=== PATIENT | female | born 2000 | race Hispanic/Latino ===

== ENCOUNTER 2024-12-01 14:27 | Emergency (ER) | payer OTHER, SELFPAY ==
[2024-12-01 14:27] VITALS: BMI 23.1
[2024-12-01 14:28] VITALS: BP 130/74
--- NOTE | 2024-12-01 15:46 | ED.GENMED ---
History of Present Illness
General
Chief Complaint: Vaginal Bleeding
Source: patient
Exam Limitations: none
Time Seen by Provider: 12/01/24 14:48
Nursing documentation reviewed up to this point in time: agreed with
History of Present Illness
History of Present Illness:
Patient is a 24-year-old female who presents to the ER for evaluation. Patient reports she has a constant history of irregular heavy periods and she has been bleeding for the past 2 weeks. She does complain of some mild cramping. She recently
graduated from [facility] and was seen by [facility] 5 months and does have an appointment in January.
Patient does complain of feeling very fatigued.
In addition she had right sided rib pain for past 5 days. She denies any injury but does report pain is worse with taking a deep breath. She denies any abdominal pain. Denies any shortness of breath. She does not smoke. She is not on
control. She denies any injury but does report she exercises a lot.
Review of Systems
Review of Systems
Allergies reviewed?: Yes
All Other Systems: ROS reviewed and negative except as documented in HPI and ROS
Constitutional: Reports no symptoms
Respiratory: Reports other (right sided rib pain )
Cardiac: Reports no symptoms
ABD/GI: Reports no symptoms
: Reports other (+ heavy vaginal bleeding mild cramping)
Musculoskeletal: Reports no symptoms
Skin: Reports no symptoms
Neurological: Reports no symptoms
Psychiatric: Reports no symptoms
Phy Exam
General Physical Exam
General Presentation: no apparent distress
General age: appears stated age
General Skin: warm and dry
General Habitus: normal
General Mental: alert
General Hydration: appears well hydrated
Gastrointestinal Exam
Gastrointestinal Exam: normal bowel sounds, non tender and soft
Neurological Exam
Neurological Exam: alert and oriented x3
Musculoskeletal Exam
Musculoskeletal Exam: full ROM
Skin Exam
Skin Exam: normal color and warm/dry
Psychiatric Exam
Psychiatric Exam: normal mood/affect
Course
Orders/Labs/Results
Orders:
Orders
12/01/24 15:47
0.9% Sodium Chloride 1000 ml [Nss] 1,000 ml IV BOLUS
US Pelvis Only (non-obstetric) Urgent
Comment:
Reason For Exam: heavy vaginal bleeding
12/01/24 15:48
Test Result ONCE
12/01/24 16:01
Complete Blood Count/With Diff Urgent
Comprehensive Metabolic Panel Urgent
DDimer [D-Dimer] Urgent
HCG, Serum Qualitative Screen Urgent
Iron Urgent
TIBC [Total Iron Binding] Urgent
12/01/24 17:07
Chest [CR Chest - 2 Views ] Urgent
Comment:
Reason For Exam: right lateral rib pain no trauma
Abnormal Lab Results
12/01/24
16:01
RBC 4.15 L 10^6/uL
(4.20-5.40)
Hgb 11.7 L g/dL
(12.0-16.0)
Hct 33.4 L %
(37.0-47.0)
MCV 80.5 L fL
(81.0-99.0)
Absolute Neuts (auto) 7.2 H 10^3/uL
(1.4-6.5)
Absolute Monos (auto) 0.8 H 10^3/uL
(0.1-0.6)
Chloride 108 H mmol/L
(98-107)
BUN 24 H mg/dl
(7-17)
Iron 34 L ug/dl
(37-170)
% Saturation 9 L %
(20-50)
12/01/24 16:01
12/01/24 16:01
Vital Signs
Initial and Last Documented VS:
Initial Vital Signs
Temp Pulse Resp BP Pulse Ox
98.4 F 65 16 130/74 97
12/01/24 14:28 12/01/24 14:28 12/01/24 14:28 12/01/24 14:28 12/01/24 14:28
Last Documented Vital Signs
Temp Pulse Resp BP Pulse Ox
98.4 F 62 16 121/74 99
12/01/24 14:28 12/01/24 16:00 12/01/24 16:00 12/01/24 16:00 12/01/24 16:00
MDM/Problems Addressed
Differential Diagnosis Includes:
Not limited to dysfunctional vaginal bleeding, heavy periods, anemia
MDM/Problems Addressed:
Patient is a 24 female presents with heavy periods she has been seen by [facility] and does have an appointment scheduled in January. She presented for fatigue. She presents awake alert no acute distress denies any heavy vaginal bleeding now. Mild cramping
abdomen soft nontender patient complains of also pain to the right lateral rib area though she denies any injury she is not presently on control her lungs are clear her D-dimer is negative she is not hypoxic nontachycardic not concerning for
PE. She does exercise a lot possible muscular will recommend NSAIDs.
Patient's hemoglobin only lower 11.7 iron level minimally low at 34. I did review with patient the importance of outpatient follow-up with [facility] as scheduled. We talked about possibly starting a women's multivitamin with iron however we will
hold off on prescribing iron until seen by [facility]. We discussed iron rich foods.
Patient nontoxic stable for discharge home.
*Radiology
Radiology exam reviewed: radiology read reviewed
*Pulse Oximetry
Patient hypoxic: no
*Critical Care Note
Total Time (30-74mins, 75-104mins- exclusive of procedures): Not Applicable
ED Attending Note
-
Portions of this chart may have been created with voice recognition software.� Occasional wrong word or��sound alike� substitutions may have occurred due to the inherent limitations of voice recognition software.
Discharge Plan
Departure
Patient Disposition: Home (Routine Discharge)
Date of Disposition: 12/01/24
Time of Disposition: 17:55
Patient with high blood pressure during this ER visit?: No
Condition: Fair
Covid-19: Not Applicable
Discharge Problem:
Heavy menstrual period, Chest wall pain
Instructions: Heavy Periods (DC)
Referrals:
NONE,* [Family Provider, Internal Medicine]
Activity Restrictions/Additional Instructions:
As discussed for your heavy periods. Please follow-up with your [facility] as scheduled please review her blood work with your [facility]. You may take an [id number] multivitamin with iron if you wish. Increase foods rich in iron such as meats and
green leafy vegetables.
Regarding your right chest wall pain this is likely muscular you may take Tylenol Motrin for discomfort. Follow-up with family doctor in the next several days. Return if any worsening of symptoms.
Interventions
Interventions:
*Risk Screen - Suicide Last Done: 12/01/24 14:28
*General Assessment Last Done: 12/01/24 15:00
*Neglect/Abuse Screening Last Done: 12/01/24 14:28
*ED- Fall Risk Assessment Last Done: 12/01/24 15:00
ED-Female Genitourinary Assessment Last Done: 12/01/24 15:00
Discharge Date and Time
Print Language: ESTONIAN
[2024-12-01 16:00] VITALS: BP 121/74
[2024-12-01] MEDS: NSS 1000 IV (16:02)
[2024-12-01 16:18] LABS: % Basophils 0.7 % (0-2); % Eosinophils 3.4 % (0-6); % Immature Granulocytes 0.1 % (0-0.5); % Lymphocytes 21.4 % (20.5-51.1); % Monocytes 7.5 % (1.7-9.3); % Neutrophils 66.9 % (42.2-75.2); Absolute Basophils 0.1 10^3/uL (0-0.2); Absolute Eosinophils 0.4 10^3/uL (0-0.7); Absolute Lymphocytes 2.3 10^3/uL (1.2-3.4); Absolute Monocytes 0.8 10^3/uL (0.1-0.6); Absolute Neutrophils 7.2 10^3/uL (1.4-6.5); Hematocrit 33.4 % (37.0-47.0); Hemoglobin 11.7 g/dL (12.0-16.0); Mean Corpuscular Hgb 28.2 pg (27.0-31.0); Mean Corpuscular Volume 80.5 fL (81.0-99.0); Mean Platelet Volume 9.8 fL (7.4-10.4); Nucleated Red Blood Cells % 0 %; Platelet Count 336 10^3/uL (130-400); Red Blood Cell Count 4.15 10^6/uL (4.20-5.40); Red Cell Dist. Width 13.9 % (11.5-14.5); White Blood Cell Count 10.7 10^3/uL (4.8-10.8)
[2024-12-01 16:26] LABS: HCG, Serum Qualitative Screen Negative
[2024-12-01 16:36] LABS: ALT (SGPT) 13 U/L (0-35); AST (SGOT) 20 U/L (14-36); Albumin 4.1 g/dl (3.5-5.0); Alkaline Phosphatase 54 U/L (38-126); Blood Urea Nitrogen 24 mg/dl (7-17); Calcium 9.2 mg/dl (8.4-10.2); Carbon Dioxide 26 mmol/L (22-30); Chloride 108 mmol/L (98-107); Estimated Creatinine Clearance 104 ml/min; Glucose 90 mg/dl (70-99); Iron 34 ug/dl (37-170); Potassium 4.4 mmol/L (3.5-5.1); Sodium 140 mmol/L (135-145); Total Bilirubin 0.3 mg/dl (0.2-1.3); Total Protein 7.2 g/dl (6.3-8.2); eGFR > 60.00
[2024-12-01 16:45] LABS: Percent Saturation 9 % (20-50); Total Iron Binding Capacity 370 ug/dl (265-497)
[2024-12-01 17:04] LABS: D-Dimer 0.47 ug/mlFEU (0.00-0.50)
== END 2024-12-01 17:59 | disposition home or self-care (01) ==
LOC: EMR 14:27
PROVIDERS: Nurse Practitioner; EMERGENCY PHYSICIAN Emergency Medicine
DX: N92.1 Excessive and frequent menstruation with irregular cycle (principal); R07.89 Other chest pain
CPT/HCPCS: 96360; 99284; 71046; 76856; 80053; 83540; 83550; 84703; 85025; 85379